=== PATIENT | male | born 1945 | race Caucasian/White ===

== ENCOUNTER 2016-06-02 09:32 | Emergency (ER) | payer OTHER ==
[~2016-06-02] VITALS: Ht 167.6 cm; Wt 72.5 kg
[~2016-06-02 09:32] MED LIST: ASPI-535 PO; UNABLE TO RECALL; [UNRECOGNIZED DRUG - REMARK]; [UNRECOGNIZED DRUG - REMARK] PO; [UNRECOGNIZED DRUG - REMARK] PO
[2016-06-02 09:37] VITALS: Ht 167.6 cm; Wt 72.5 kg
[2016-06-02] MEDS ORDERED: ONDANSETRON 4 MG INJ IV STA (09:54)
[2016-06-02] MEDS ORDERED: SOD CHLORIDE 0.9% 1,000 ML IV STA (09:54)
[2016-06-02] MEDS ORDERED: morphine 4 MG/ML VIAL IV STA (09:54)
[2016-06-02] MEDS ORDERED: FAMOTIDINE 20 MG INJ IV STA (09:54)
[2016-06-02] MEDS ORDERED: ASPI-664 PO (10:40)
[2016-06-02] MEDS ORDERED: LISI1TAB8 PO (10:41)
[2016-06-02] MEDS ORDERED: ATOR20TA38 PO (10:42)
[2016-06-02] MEDS ORDERED: AMOX1TAB10 PO (10:43)
[2016-06-02] MEDS ORDERED: IBUP800T25 PO (10:44)
[2016-06-02] MEDS ORDERED: CELE200C PO (10:44)
[2016-06-02] MEDS ORDERED: HYDROmorphONE 1 MG/ML SYG IV STA (10:47)
[2016-06-02 10:49] LABS: ADD SCAN DIFF NO
[2016-06-02 10:51] LABS: BASOPHILS % 0.3 % (0.0-2.0); EOSINOPHILS # 0.1 10^3/ul (0.0-0.5); EOSINOPHILS % 1.4 % (0.0-7.0); HEMOGLOBIN 14.2 g/dl (14.0-18.0); LYMPHOCYTES # 2.1 10^3/ul (0.8-2.9); LYMPHOCYTES % 33.2 % (15.0-51.0); MEAN CORPUSCULAR HEMOGLOBIN 31.1 pg (29.0-33.0); MEAN CORPUSCULAR VOLUME 94.1 fl (82.0-101.0); MEAN PLATELET VOLUME 11.6 fl (7.4-10.4); MONOCYTE # 0.6 10^3/ul (0.3-0.9); MONOCYTES % 9.2 % (0.0-11.0); NEUTROPHIL # 3.6 10^3/ul (1.6-7.5); NEUTROPHILS % 55.7 % (39.0-77.0); PLATELET COUNT 310 10^3/UL (140-415); RED BLOOD COUNT 4.57 10^6/ul (4.70-6.10); RED CELL DISTRIBUTION WIDTH 12.4 % (11.5-14.5); WHITE BLOOD COUNT 6.4 10^3/ul (4.8-10.8)
[2016-06-02 10:53] LABS: ADD UMIC NO; URINE BILIRUBIN (Dip) NEGATIVE (NEGATIVE); URINE BLOOD (Dip) NEGATIVE (NEGATIVE); URINE COLOR LT. YELLOW (YELLOW); URINE GLUCOSE (Dip) NEGATIVE (NEGATIVE); URINE KETONES (Dip) NEGATIVE (NEGATIVE); URINE LEUKOCYTE ESTERASE (Dip) NEGATIVE (NEGATIVE); URINE NITRITE (Dip) NEGATIVE (NEGATIVE); URINE TOTAL PROTEIN (Dip) NEGATIVE (NEGATIVE); URINE UROBILINOGEN (Dip) 0.2 E.U./dL (0.1-1.0)
[2016-06-02 11:11] LABS: ALBUMIN 4.1 g/dl (3.3-4.9); ALBUMIN/GLOBULIN RATIO 1.36; BILIRUBIN,INDIRECT 0.6 mg/dl (0-1.1); BILIRUBIN,TOTAL 0.6 mg/dl (0.2-1.3); CALCIUM 8.8 mg/dl (8.4-10.2); CREATININE 0.83 mg/dl (0.61-1.24); POTASSIUM 3.5 mmol/L (3.5-5.1); TOTAL PROTEIN 7.1 g/dl (6.1-8.1)
[2016-06-02 11:28] VITALS: BP 136/83; PULSE 48; RESP 20; TEMP 97.7
--- NOTE | 2016-06-02 12:12 | RADRPT ---
PROCEDURE: CT Abdomen and Pelvis without contrast. CLINICAL INDICATION: Abdominal and pelvic pain. TECHNIQUE: CT scan of the abdomen and pelvis without contrast was performed. Coronal and sagittal reformatted images were obtained from the axial source images. Images were reviewed on a high-resolu tion PACS workstation. Total exam DLP is 741.74 mGy-cm. CTDIvol is 11.88 mGy. One or more of the f ollowing dose reduction techniques were used: Automated exposure control, adjustment of the mA and/o r kV according to patient size, use of iterative reconstruction technique. COMPARISON: CT scan of the abdomen and pelvis dated 09/04/2012 which demonstrated a left inguinal hernia with colon extending into the left side of the scrotum, distended urinary bladder, and severe degenerative changes of the spine. FINDINGS: There is mild atelectasis at the left lung base posteriorly. The lung bases are otherwise normal. There is no pleural effusion. There is a small hiatus hernia containing upper stomach. There is a left sided posterior diaphragmatic hernia containing only abdominal fat. The liver is normal in size and attenuation. There is no focal hepatic lesion. The gallbladder and bile ducts are normal. The spleen is normal in size. There is no focal splenic lesion. Both adrenals are normal with no enlargement or mass. The pancreas is unremarkable with no mass or evidence of pancreatitis. There is no renal mass or hydronephrosis. There is no renal calculus or ureteral calculus. The abdominal aorta is not dilated. There is calcification in the aorta consistent with atheroscler osis. There is no retroperitoneal lymphadenopathy or mass. There is no pelvic lymphadenopathy or mass. The bladder and distal ureters are normal. The periappendiceal region is unremarkable with no evidence of appendicitis. As seen previously, there is a left inguinal hernia with sigmoid colon extending into the left side of the scrotum without incarceration or obstruction. There is no free fluid or free gas. There are severe degenerative changes throughout the visualized lumbar spine. There is no fracture or lytic lesion. There is lumbar scoliosis convex left. IMPRESSION: 1. Mild atelectasis at the left lung base posteriorly. 2. Left-sided diaphragmatic hernia containing only omental fat. 3. Hiatus hernia containing a portion of the upper stomach. 4. Atherosclerosis. 5. Left inguinal hernia with sigmoid colon extending into the left side of the scrotum. No evidenc e of obstruction. 6. Severe degenerative changes of the spine and lumbar scoliosis convex left. 7. Otherwise unremarkable study. RPTAT: QQ .Glynn Powell MD, Date Time Electronically viewed and signed by .Glynn Powell MD, on 06/02/2016 12:11 .R/
--- NOTE | 2016-06-02 13:13 | ERD ---
ER Documentation Chief Complaint Date/Time DATE: 06/02/16 TIME: 13:10 Chief Complaint Pt BIB son with c/o RUQ AP and nausea X 1 hour. HPI This is a 70-year-old male who presents to the emergency room for evaluation of abdominal pain. The patient states his abdominal pain started approximately 2 hours prior to his arrival. He states is achy pain which is localized to the left portion of his abdomen. He denies any radiation the pain, denies any fevers or vomiting associated with this pain but did say he has mild nausea. The patient states he is passing gas, has been going to the bathroom normally. He denies any aggravating or relieving factors for his pain. ROS All systems reviewed and are negative except as per history of present illness. Medications Home Meds Reported Medications Ibuprofen* (Ibuprofen*) 800 Mg Tab, 800 MG PO TID, TAB 06/02/16 Celecoxib* (Celebrex*) 200 Mg Capsule, 400 MG PO DAILY, CAP 06/02/16 Amoxicillin/Potassium Clav (Amox-Clav 875-125 mg Tablet) 875-125 mg Tab, 1 TAB PO BID for 10 Days, #20 TAB START DAY 05/29/16 06/02/16 Atorvastatin Calcium* (Atorvastatin Calcium*) 20 Mg Tablet, 20 MG PO QHS, #30 TAB 06/02/16 Lisinopril/Hydrochlorothiazide (Lisinopril-Hctz 20-25 mg Tab) 1 Each Tablet, 1 EACH PO DAILY, TAB 06/02/16 Aspirin* (Aspirin* EC) 81 Mg Tablet.dr, 81 MG PO DAILY, TAB 06/02/16 Discontinued Reported Medications [Antibx, Unk Name/Dose, Non Compliant W Freq] No Conflict Check 10/31/12 [Tramadol, Unk Dose] No Conflict Check, PO PRN 10/31/12 [Benazepril, Unk Dose] No Conflict Check, PO DAILY 10/31/12 Aspirin Ec (Aspir 81) 81 Mg Tablet.dr, PO DAILY, 0 Refills 05/17/10 [Unable To Recall] No Conflict Check 05/17/10 Allergies Allergies: Coded Allergies: No Known Allergy (Unverified , 06/02/16) PMhx/Soc History of Surgery: Yes (LEFT ARM SURGERY) Anesthesia Reaction: No Hx Neurological Disorder: No Hx Respiratory Disorders: No Hx Cardiac Disorders: Yes (HTN) Hx Psychiatric Problems: No Hx Miscellaneous Medical Probl: Yes (L knee pain) Hx Alcohol Use: No Hx Substance Use: No Hx Tobacco Use: No Smoking Status: Never smoker Physical Exam Vitals Vital Signs Date Time Temp Pulse Resp B/P Pulse Ox O2 Delivery O2 Flow Rate FiO2 06/02/16 11:28 97.7 48 20 136/83 98 Room Air 06/02/16 09:37 97.7 57 20 140/81 98 Physical Exam INITIAL VITAL SIGNS: Reviewed by me GENERAL: The patient is well developed and appropriate for usual state of health in no apparent distress HEENT: Pupils equal, round, and reactive to light. EOMI. There is no scleral icterus. NECK: C-spine is soft and supple, there is no meningismus. There is no cervical lymphadenopathy. LUNGS: Clear to auscultation bilaterally. There are no rales, wheezes or rhonchi. HEART: Regular rate and rhythm, no murmurs, clicks, rubs or gallops. ABDOMEN: Left upper quadrant tenderness to palpation, left lower quadrant tenderness to palpation, no CVAT. There are bowel sounds in all four quadrants. No rebound or guarding. EXTREMITIES: There is no peripheral cyanosis or edema. No focal swelling or erythema. NEUROLOGICAL: The patient moves all four extremities with 5/5 strength. Cranial nerves II - XII are intact. Normal gait. Alert and oriented SKIN: There is no apparent rash or petechiae. HEME/LYMPHATIC: There is no evidence of excessive bruising or lymphedema. PSYCHIATRIC: The patient does not appear anxious or depressed. Result Diagram: 06/02/16 1030 06/02/16 1030 Results 24 hrs Laboratory Tests Test 06/02/16 10:30 White Blood Count 6.410^3/ul Red Blood Count 4.5710^6/ul Hemoglobin 14.2g/dl Hematocrit 43.0% Mean Corpuscular Volume 94.1fl Mean Corpuscular Hemoglobin 31.1pg Mean Corpuscular Hemoglobin Concent 33.0g/dl Red Cell Distribution Width 12.4% Platelet Count 74813^3/UL Mean Platelet Volume 11.6fl Neutrophils % 55.7% Lymphocytes % 33.2% Monocytes % 9.2% Eosinophils % 1.4% Basophils % 0.3% Nucleated Red Blood Cells % 0.0/100WBC Neutrophils # 3.610^3/ul Lymphocytes # 2.110^3/ul Monocytes # 0.610^3/ul Eosinophils # 0.110^3/ul Basophils # 0.010^3/ul Nucleated Red Blood Cells # 0.010^3/ul Urine Color LT. YELLOW Urine Clarity CLEAR Urine pH 6.0 Urine Specific [place] 1.010 Urine Ketones NEGATIVE Urine Nitrite NEGATIVE Urine Bilirubin NEGATIVE Urine Urobilinogen 0.2 E.U./dL Urine Leukocyte Esterase NEGATIVE Urine Hemoglobin NEGATIVE Urine Glucose NEGATIVE% Urine Total Protein NEGATIVE Sodium Level 137mmol/L Potassium Level 3.5mmol/L Chloride Level 102mmol/L Carbon Dioxide Level 28mmol/L Anion Gap 11 Blood Urea Nitrogen 9mg/dl Creatinine 0.83mg/dl Glucose Level 130mg/dl Calcium Level 8.8mg/dl Total Bilirubin 0.6mg/dl Direct Bilirubin 0.00mg/dl Indirect Bilirubin 0.6mg/dl Aspartate Amino Transf (AST/SGOT) 31IU/L Alanine Aminotransferase (ALT/SGPT) 27IU/L Alkaline Phosphatase 100IU/L Troponin I < 0.010ng/ml Total Protein 7.1g/dl Albumin 4.1g/dl Globulin 3.00g/dl Albumin/Globulin Ratio 1.36 Lipase 91U/L Current Medications Medications (Trade) Dose Ordered Sig/Brayan Route PRN Reason Start Time Stop Time Status Last Admin Dose Admin Sodium Chloride (NS) 1,000 ml @ 1,000 mls/hr Q1H STAT IV 06/02/16 09:54 06/02/16 11:38 DC 06/02/16 10:24 Morphine Sulfate (morphine) 4 mg ONCE STAT IV 06/02/16 09:54 06/02/16 09:55 DC 06/02/16 10:24 Ondansetron HCl (Zofran Inj) 4 mg ONCE STAT IV 06/02/16 09:54 06/02/16 09:55 DC 06/02/16 10:23 Famotidine (Pepcid Iv) 20 mg ONCE STAT IV 06/02/16 09:54 06/02/16 09:55 DC 06/02/16 10:24 Hydromorphone HCl (Dilaudid) 1 mg ONCE STAT IV 06/02/16 10:47 06/02/16 11:38 DC 06/02/16 11:25 Procedures/MDM EKG: Rate/Rhythm: Sinus bradycardia QRS, ST, T-waves: [No changes consistent w/ acute ischemia] Impression: [No evidence of ischemia or arrhythmia] CT abdomen pelvis without: 1. Mild atelectasis at the left lung base posteriorly. 2. Left-sided diaphragmatic hernia containing only omental fat. 3. Hiatus hernia containing a portion of the upper stomach. 4. Atherosclerosis. 5. Left inguinal hernia with sigmoid colon extending into the left side of the scrotum. No evidence of obstruction. 6. Severe degenerative changes of the spine and lumbar scoliosis convex left. 7. Otherwise unremarkable study. This 70-year-old male presents to the emergency room for evaluation of abdominal pain. When I evaluated him he did have tenderness to palpation on my examination in the left upper quadrant and left lower quadrant. The patient was originally given morphine and Zofran. He does continue to have pain and was given [address] of the abdomen and pelvis does reveal left inguinal hernia with sigmoid colon extending into the left side of the scrotum but no evidence of obstruction. He also has a hiatal hernia containing a portion of the upper stomach. This patient is passing gas, his pain is controlled at this time. I advised him he needs to follow-up with the general surgeon for outpatient elective hernia repair. The patient verbalized understanding. He will be discharged home with a prescription for [place], Zofran for breakthrough pain at this time. Differential diagnoses entertained was broad with potential high acuity. Patient has been evaluated for appendicitis, cholecystitis, and other high risk medical and surgical causes of abdominal pain. Ultimately the patient's evaluation is nondiagnostic. Based on the patient's lack of risk factors, as well as the patient's clinical, laboratory, and imaging data, the patient appears to be low risk for these high risk causes of abdominal pain. Departure Diagnosis: Primary Impression: Left inguinal hernia Additional Impression: Abdominal pain Condition: Stable CORKY PACE DO Jun 02, 2016 13:13
[2016-06-02] MEDS ORDERED: ONDA4TAB8 PO (13:14)
[2016-06-02] MEDS ORDERED: HYDR-906 PO (13:14)
[2016-06-03] MEDS ORDERED: ONDANSETRON 4 MG INJ IV PRN (11:30)
[2016-06-03] MEDS ORDERED: morphine 2 MG INJ IV PRN (11:30)
[2016-06-03] MEDS ORDERED: OXYCODONE/ACETAMINOPHEN (5/325) TAB PO PRN ×2 (11:30)
== END 2016-06-02 13:36 | disposition home or self-care (01) ==
LOC: E/R 09:32
DX: K40.91 Unilateral inguinal hernia, without obstruction or gangrene, recurrent (principal); I10 Essential (primary) hypertension; Z79.82 Long term (current) use of aspirin
CPT/HCPCS: 36415; 74176; 80053; 81003; 83690; 84484; 85025; 93005; 96374; 96375; 99285; J1170; J2270; J2405; J7030

== ENCOUNTER 2016-06-02 16:11 | Inpatient (IN) | payer OTHER ==
[~2016-06-02] VITALS: Ht 167.6 cm; Wt 79.9 kg
[~2016-06-02 16:11] MED LIST changes: +AMOX1TAB10 PO; +ASPI-664 PO; +ATOR20TA38 PO; +CELE200C PO; +HYDR-906 PO; +IBUP800T25 PO; +LISI1TAB8 PO; +ONDA4TAB8 PO
[2016-06-02] MEDS ORDERED: SOD CHLORIDE 0.9% 1,000 ML IV STA (17:25)
[2016-06-02] MEDS ORDERED: ONDANSETRON 4 MG INJ IV STA (17:25)
[2016-06-02] MEDS ORDERED: HYDROmorphONE 1 MG/ML SYG IV STA (17:25)
--- NOTE | 2016-06-02 17:28 | ERA ---
ER Documentation Chief Complaint Date/Time DATE: 06/02/16 TIME: 17:27 Chief Complaint Pt with AP, recently DC in ED for same reason. HPI 70-year-old male hypertensive, hyperlipidemic with history of arthritis and left a little hernia for over 20 years since the ED complaining of severe, sharp and crampy left-sided abdominal and scrotal pain with nausea and vomiting. He was seen earlier today in the emergency department had extensive workup including CT scan revealed left internal hernia with bowel contents in the scrotum but no evidence of obstruction. Pain was relieved with the law did and he was discharged home with prescriptions for [place] and Zofran. He has ongoing nonbloody, nonbilious emesis is unable to tolerate his medications. Denies dysuria, polyuria, hematuria or flank pain. No chest pain or palpitations. No shortness of breath or cough. But has been unable to tolerate these meds. Denies diarrhea or constipation. No hematochezia or melanotic stools. No relieving or exacerbating factors. No fevers or chills. ROS All systems reviewed and are negative except as per history of present illness. Medications Home Meds Active Scripts Ondansetron Hcl* (Zofran*) 4 Mg Tablet, 4 MG PO Q8H Y for NAUSEA AND/OR VOMITING , #12 TAB Prov:CORKY PACE DO 06/02/16 Hydrocodone/Acetaminophen ([place] 5-325 Tablet) 1 Each Tablet, 1 TAB PO Q6H Y for PAIN, #10 TAB Prov:CORKY PACE DO 06/02/16 Reported Medications Ibuprofen* (Ibuprofen*) 800 Mg Tab, 800 MG PO TID, TAB 06/02/16 Celecoxib* (Celebrex*) 200 Mg Capsule, 400 MG PO DAILY, CAP 06/02/16 Amoxicillin/Potassium Clav (Amox-Clav 875-125 mg Tablet) 875-125 mg Tab, 1 TAB PO BID for 10 Days, #20 TAB START DAY 05/29/16 06/02/16 Atorvastatin Calcium* (Atorvastatin Calcium*) 20 Mg Tablet, 20 MG PO QHS, #30 TAB 06/02/16 Lisinopril/Hydrochlorothiazide (Lisinopril-Hctz 20-25 mg Tab) 1 Each Tablet, 1 EACH PO DAILY, TAB 06/02/16 Aspirin* (Aspirin* EC) 81 Mg Tablet.dr, 81 MG PO DAILY, TAB 06/02/16 Discontinued Reported Medications [Antibx, Unk Name/Dose, Non Compliant W Freq] No Conflict Check 10/31/12 [Tramadol, Unk Dose] No Conflict Check, PO PRN 10/31/12 [Benazepril, Unk Dose] No Conflict Check, PO DAILY 10/31/12 Aspirin Ec (Aspir 81) 81 Mg Tablet.dr, PO DAILY, 0 Refills 05/17/10 [Unable To Recall] No Conflict Check 05/17/10 Allergies Allergies: Coded Allergies: No Known Allergy (Unverified , 06/02/16) PMhx/Soc Reviewed in chart. As per HPI. History of Surgery: Yes (LEFT ARM SURGERY) Anesthesia Reaction: No Hx Neurological Disorder: No Hx Respiratory Disorders: No Hx Cardiac Disorders: Yes (HTN) Hx Psychiatric Problems: No Hx Miscellaneous Medical Probl: Yes (L knee pain) Hx Alcohol Use: No Hx Substance Use: No Hx Tobacco Use: No FmHx No stroke or cancer. Physical Exam Vitals Vital Signs Date Time Temp Pulse Resp B/P Pulse Ox O2 Delivery O2 Flow Rate FiO2 06/02/16 18:30 97.4 54 20 152/82 99 Room Air 06/02/16 16:13 97.4 62 20 194/90 95 Physical Exam Const: Alert, monitor status due to pain. Head: Atraumatic Eyes: Normal Conjunctiva. Sclerae anicteric. ENT: Normal External Ears, Nose and Mouth. Neck: Full range of motion nontender. No JVD. Resp: Breath sounds are equal and Clear to auscultation bilaterally Cardio: Regular rate and rhythm, no murmurs Abd: Soft, mild diffuse tenderness and distention. No rebound or guarding. Left inguinal hernia extending into the scrotum. Skin: No petechiae or rashes Back: No midline or flank tenderness Ext: No cyanosis, or edema Neur: Awake and alert. No focal deficit observed. Psych: Normal Mood and Affect Results 24 hrs Current Medications Medications (Trade) Dose Ordered Sig/Brayan Route PRN Reason Start Time Stop Time Status Last Admin Dose Admin Sodium Chloride (NS) 1,000 ml @ 1,000 mls/hr Q1H STAT IV 06/02/16 17:25 06/02/16 18:24 DC 06/02/16 17:33 Hydromorphone HCl (Dilaudid) 1 mg ONCE STAT IV 06/02/16 17:25 06/02/16 17:27 DC 06/02/16 17:34 Ondansetron HCl (Zofran Inj) 4 mg ONCE STAT IV 06/02/16 17:25 06/02/16 17:27 DC 06/02/16 17:33 Ondansetron HCl (Zofran Inj) 4 mg BRIDGE ORDER PRN IV NAUSEA AND/OR VOMITING 06/02/16 19:00 06/03/16 18:59 Acetaminophen (Tylenol Tab) 650 mg ER BRIDGE PRN PO MILD PAIN/FEVER 06/02/16 19:00 06/03/16 18:59 PROCEDURE: CT Abdomen and Pelvis without contrast. CLINICAL INDICATION: Abdominal and pelvic pain. TECHNIQUE: CT scan of the abdomen and pelvis without contrast was performed. Coronal and sagittal reformatted images were obtained from the axial source images. Images were reviewed on a high-resolution PACS workstation. Total exam DLP is 741.74 mGy-cm. CTDIvol is 11.88 mGy. One or more of the following dose reduction techniques were used: Automated exposure control, adjustment of the mA and/or kV according to patient size, use of iterative reconstruction technique. COMPARISON: CT scan of the abdomen and pelvis dated 09/04/2012 which demonstrated a left inguinal hernia with colon extending into the left side of the scrotum, distended urinary bladder, and severe degenerative changes of the spine. FINDINGS: There is mild atelectasis at the left lung base posteriorly. The lung bases are otherwise normal. There is no pleural effusion. There is a small hiatus hernia containing upper stomach. There is a left sided posterior diaphragmatic hernia containing only abdominal fat. The liver is normal in size and attenuation. There is no focal hepatic lesion. The gallbladder and bile ducts are normal. The spleen is normal in size. There is no focal splenic lesion. Both adrenals are normal with no enlargement or mass. The pancreas is unremarkable with no mass or evidence of pancreatitis. There is no renal mass or hydronephrosis. There is no renal calculus or ureteral calculus. The abdominal aorta is not dilated. There is calcification in the aorta consistent with atherosclerosis. There is no retroperitoneal lymphadenopathy or mass. There is no pelvic lymphadenopathy or mass. The bladder and distal ureters are normal. The periappendiceal region is unremarkable with no evidence of appendicitis. As seen previously, there is a left inguinal hernia with sigmoid colon extending into the left side of the scrotum without incarceration or obstruction. There is no free fluid or free gas. There are severe degenerative changes throughout the visualized lumbar spine. There is no fracture or lytic lesion. There is lumbar scoliosis convex left. IMPRESSION: 1. Mild atelectasis at the left lung base posteriorly. 2. Left-sided diaphragmatic hernia containing only omental fat. 3. Hiatus hernia containing a portion of the upper stomach. 4. Atherosclerosis. 5. Left inguinal hernia with sigmoid colon extending into the left side of the scrotum. No evidence of obstruction. 6. Severe degenerative changes of the spine and lumbar scoliosis convex left. 7. Otherwise unremarkable study. RPTAT: QQ .Glynn Powell MD, MD Date Time Electronically viewed and signed by .Glynn Powell MD, on 06/02/2016 12:11 .R/ Procedures/MDM DOCUMENTS REVIEWED: ED nurse, prior ED visit from today ED COURSE: Normal saline 1 L. Dilaudid 1 mg/Zofran 1 mg IV REEXAMINATION/REEVALUATION: Time: 18:00. Doing well. Abdomen soft nontender. No nausea or vomiting. MEDICAL DECISION MAKIN-year-old male hypertensive, hyperlipidemic with history of arthritis and left a little hernia for over 20 years since the ED complaining of severe, sharp and crampy left-sided abdominal and scrotal pain with nausea and vomiting. Patient presents with a long-standing left inguinal hernia which is not reducible. Presentation consistent with incarcerated left internal hernia. CT scan done several hours ago Saturday unremarkable however strangulation is still considered. No evidence of ischemic bowel. Pain resolved with intravenous hydration, analgesics and antiemetics. Counseled patient and family regarding diagnosis, diagnostic results and plan for admission. CALLS/CONSULTS: Time 18:00, Dr. Colmenares, Recommends admission to [facility]. He will contact surgery Dr. Smiley.. PATIENT CARE TRANSITIONED: Time: 18:40, Dr. Colmenares Departure Diagnosis: Primary Impression: Incarcerated left inguinal hernia Additional Impressions: Intractable abdominal pain Nausea and vomiting Qualified Code: R11.2 - Intractable vomiting with nausea, unspecified vomiting type Essential hypertension Condition: Serious CHAPITO CARVER MD Jun 02, 2016 17:28
[2016-06-02] MEDS ORDERED: ACETAMINOPHEN 325 MG TAB PO PRN (19:00)
[2016-06-02] MEDS ORDERED: ONDANSETRON 4 MG INJ IV PRN (19:00)
--- NOTE | 2016-06-02 19:38 | HP ---
Date/Time of Note Date/Time of Note DATE: 06/02/16 TIME: 19:37 Assessment/Plan VTE Prophylaxis VTE Prophylaxis Intervention: SCD's Assessment/Plan Assessment/Plan [facility] 1. 70yo man with known left inguinal hernia, now with intractable nausea and emesis all day secondary to entrapped colon in the left scrotum. Case discussed with Dr. Enzo Smiley by phone. * Anticipate surgery tomorrow morning * NPO after midnight * Pain management per Dr. Smiley * IV fluid support in the meantime, with recheck on electrolytes and CBC tomorrow morning. 2. ACL and PCL tears in the left knee. * Wrote to the medical accounting clerk regarding accelerated approval for needed surgery 3. Hypertension, with elevated SBP tonight in the 180s * Hydralazine PRN for SBP > 150 4. Hyperlipidemia 5. Prophylaxis * SCDs and famotidine IV 6. Disposition home after surgery. Sana Colmenares MD PhD [phone] HPI/ROS Admit Date/Time Admit Date/Time 02 June 2016 Hx of Present Illness 70[address] of Dr[address] Cameron Degroot with a history of asymptomatic left inguinal hernia for some years. He woke this morning with severe pain in the left pelvic area. He presented to the [facility] ER, where CT scan showed colonic contents in the left scrotum, but no obstruction. He was discharged home on pain medicine, with follow-up Saturday to Dr. Enzo Smiley. But his son said the pain worsened through the day, with intractable nausea and emesis. So he returned tonight to the ER for further evaluation and relief of his symptoms. ROS No loose stooling or constipation. No dyspnea or chest pain. PMH/Family/Social Past Medical History Medical History: high cholesterol, hypertension, other (Ligamentous tear ) Social History Smoking Status: Never smoker Exam/Review of Systems Vital Signs Vitals Vital Signs Date Time Temp Pulse Resp B/P Pulse Ox O2 Delivery O2 Flow Rate FiO2 06/02/16 18:30 97.4 54 20 152/82 99 Room Air Exam Constitutional: alert, oriented, well developed Psych: nl mood/affect, no complaints Head: atraumatic, normocephalic Eyes: EOMI, PERRL, nl conjunctiva ENMT: mucosa pink and moist Neck: non-tender, supple, No jvd, No masses, No nuchal rigidity, No thyromegaly Respiratory: clear to auscultation, normal air movement, No congested cough, No crackles/rales, No diminished breath sounds, No intercostal retraction, No labored breathing, No wheezing Cardiovascular: nl pulses, regular rate and rhythm, No bruits, No diastolic murmur, No edema, No gallop, No irregular rhythm, No jugular venous distention (JVD), No murmurs/extra sounds, No rub, No systolic murmur Gastrointestinal: bowel sounds, nl liver, spleen, non-tender, soft, tender ( Apprehensive with palpation of the left lower quadrant), No ascites, No distended, No firm, No hepatomegaly, No rebound or guarding, No splenomegaly, No surgical scars Genitourinary - Male: other (Moderately enlarged, firm, tender left scrotum with bowel contents non-reduceable there) Musculoskeletal: muscle tone, other (Left knee brace in place; h/o positive anterior and posterior drawer tests) Extremities: normal pulses, other, No calf tenderness, No clubbing, No cyanosis, No edema, No palpable cord, No pitting pedal edema, No tenderness Neurological: IT RISK ADVISOR II-XII intact, nl mental status, nl speech, nl strength, No DTR's symmetric, No confused, No focal weakness, No lethargic, No numbness , No reflexes, No unresponsive Skin: nl turgor, No diaphoresis, No ecchymosis, No laceration, No puncture, No rash or lesions Lymph: nl lymph nodes YURI COLMENARES M.D. Jun 02, 2016 19:38
[2016-06-02 22:02] VITALS: TEMP 97.4
[2016-06-02 22:20] VITALS: BP 185/86; PULSE 86; RESP 18
[2016-06-02 22:25] VITALS: BP 185/86; RESP 18
[2016-06-02 22:58] VITALS: Ht 167.6 cm; Wt 79.9 kg
[2016-06-02 23:20] VITALS: BP 181/80
[2016-06-03] VITALS (16 sets, daily range): BP systolic 133–157; BP diastolic 58–76; PULSE 50–69; RESP 14–19
[2016-06-03] MEDS ORDERED: ONDANSETRON 4 MG INJ IV PRN
[2016-06-03] MEDS ORDERED: NACL 0.9% 3 ML SYG IV SCH
[2016-06-03] MEDS ORDERED: DEXTROSE 5%-0.9% NACL 1,000 ML IV SCH
[2016-06-03] MEDS ORDERED: hydrALAzine 20 MG INJ IV PRN ×2 (00:30→11:00)
[2016-06-03] MEDS: FAMOTIDINE 20 MG INJ IV SCH ×3 (00:30→20:59)
[2016-06-03] MEDS: D5-NS + KCL 20 MEQ 1,000 ML IV SCH ×3 (01:05→20:00)
[2016-06-03] MEDS: HYDROmorphONE 1 MG/ML SYG IV PRN ×3 (01:05→17:16)
[2016-06-03 06:13] LABS: ADD SCAN DIFF NO
[2016-06-03 06:27] LABS: BASOPHILS % 0.1 % (0.0-2.0); EOSINOPHILS % 0.1 % (0.0-7.0); HEMATOCRIT 40.3 % (42.0-52.0); HEMOGLOBIN 13.4 g/dl (14.0-18.0); LYMPHOCYTES # 1.5 10^3/ul (0.8-2.9); LYMPHOCYTES % 16.9 % (15.0-51.0); MEAN CORPUSCULAR HEMOGLOBIN 31.8 pg (29.0-33.0); MEAN CORPUSCULAR HGB CONC 33.3 g/dl (32.0-37.0); MEAN CORPUSCULAR VOLUME 95.7 fl (82.0-101.0); MEAN PLATELET VOLUME 11.2 fl (7.4-10.4); MONOCYTE # 0.8 10^3/ul (0.3-0.9); MONOCYTES % 9.8 % (0.0-11.0); NEUTROPHIL # 6.2 10^3/ul (1.6-7.5); NEUTROPHILS % 72.7 % (39.0-77.0); PLATELET COUNT 277 10^3/UL (140-415); RED BLOOD COUNT 4.21 10^6/ul (4.70-6.10); RED CELL DISTRIBUTION WIDTH 12.4 % (11.5-14.5); WHITE BLOOD COUNT 8.6 10^3/ul (4.8-10.8)
[2016-06-03 06:43] LABS: INR 1.09; PROTIME 14.1 Sec (12.2-14.2); PT RATIO 1.1
[2016-06-03 06:57] LABS: CREATININE 0.62 mg/dl (0.61-1.24); POTASSIUM 4.6 mmol/L (3.5-5.1)
[2016-06-03 07:22] LABS: CALCIUM 8.5 mg/dl (8.4-10.2)
[2016-06-03] MEDS ORDERED: BUPIVACAINE 0.25% (MPF) 30 ML INJ ONE (10:01)
[2016-06-03] MEDS ORDERED: SUCCINYLCHOLINE CHLORIDE 100 MG/5 ML SYG IV ONE (10:11)
[2016-06-03] MEDS ORDERED: ROCURONIUM 50 MG INJ ONE (10:11)
[2016-06-03] MEDS ORDERED: PROPOFOL 20 ML ONE (10:12)
[2016-06-03] MEDS ORDERED: CEFAZOLIN 1 GM INJ ONE (10:23)
[2016-06-03] MEDS ORDERED: ONDANSETRON 4 MG INJ ONE (10:25)
[2016-06-03] MEDS ORDERED: DEXAMETHASONE 4 MG/ML 1 ML INJ ONE (10:26)
--- NOTE | 2016-06-03 10:27 | CONS ---
DATE OF ADMISSION: 06/02/2016 DATE OF CONSULTATION: 06/03/2016 TYPE OF CONSULTATION: Surgical. REASON FOR CONSULTATION: Incarcerated left inguinal hernia. HISTORY OF PRESENT ILLNESS: The patient is a 70-year-old gentleman who has had a left inguinal silvestre ia for quite some time. Yesterday, he presented to the emergency room with an incarcerated left ing uinal hernia associated with nausea and vomiting. CT showed colon incarcerated in the hernia. He h as had no fevers or chills. REVIEW OF SYSTEMS: HEAD, EARS, EYES, NOSE, AND THROAT: Unremarkable. PULMONARY: No history of pneumonia or shortness of breath. CARDIAC: History of hypertension and hyperlipidemia, but no chest pain, RI, or arrhythmia. ABDOMEN: As in the HPI. EXTREMITIES: Unremarkable. OUTPATIENT MEDICATIONS: Outlined in the chart. ALLERGIES: NONE. PHYSICAL EXAMINATION: GENERAL: The patient is an alert, oriented, 70-year-old male in no acute distress. HEAD, EARS, EYES, NOSE, AND THROAT: Within normal limits. LUNGS: Clear. HEART: Regular rhythm. ABDOMEN: Soft and nontender. There is an incarcerated left inguinal hernia extending into the scro idalia. The right groin is normal. EXTREMITIES: Unremarkable. LABORATORY DATA: The patient's hematocrit is 40 with a white count of 8600 without left shift. BUN , glucose, electrolytes are unremarkable. INR is 1.11. CT shows left inguinal hernia with sigmoid colon extending into the left of the scrotum, otherwise unremarkable except for diaphragmatic and hi atus hernia. IMPRESSION: Incarcerated left inguinal hernia with obstruction. PLAN: The patient will undergo emergency repair with mesh. The procedure and risks have been outli jazmyn to the patient and who have an excellent understanding of the nature of his situation and a gree to the proposed plan of therapy as outlined. Dictated By: MIRNA CERVANTES/FARHAD Conf#: [id number] DID#: [id number] CC: MATEO BIRD MD;*EndCC*
[2016-06-03] MEDS ORDERED: ROPIVACAINE 0.2% 20 ML VIAL ONE (10:28)
[2016-06-03] MEDS ORDERED: NEOSTIGMINE 3 MG/3 ML SYRINGE ONE (10:31)
[2016-06-03] MEDS ORDERED: GLYCOPYRROLATE 0.4 MG INJ ONE (10:31)
[2016-06-03] MEDS ORDERED: MEPERIDINE 25 MG INJ IV PRN (11:00)
[2016-06-03] MEDS ORDERED: PROCHLORPERAZINE 10 MG INJ IV PRN (11:00)
[2016-06-03] MEDS ORDERED: LABETALOL HCL 20MG INJ IV PRN (11:00)
[2016-06-03] MEDS ORDERED: HYDROmorphONE (0.2 MG/ML) 10ML SYG IV PRN (11:00)
[2016-06-03] MEDS: HYDROmorphONE (0.2 MG/ML) 10ML SYG IV PRN ×2 (11:43→11:54)
--- NOTE | 2016-06-03 15:08 | OPR ---
DATE OF OPERATION: 06/03/2016 PREOPERATIVE DIAGNOSIS: Incarcerated left inguinal hernia with obstruction. POSTOPERATIVE DIAGNOSIS: Incarcerated left inguinal hernia with obstruction OPERATION PERFORMED: 1. Repair left inguinal hernia with extra-large plug. 2. Reduction and release of bowel resection. 3. Left inguinal nerve block. SURGEON: Mirna Smiley MD ANESTHESIA: General. ANESTHESIOLOGIST: Reddy Jones DO OPERATIVE REPORT: After satisfactory general anesthesia was achieved, the lower abdomen was prepped and draped in the usual fashion. With the patient in a relaxed state, the hernia was able to be reduced. A 4 cm transverse suprapubic left groin incision was made and carried down to the level of the external oblique aponeurosis, which was opened in the direction of its fibers. The cord and nerve were retracted and preserved. There was a large sac extending into the scrotum. The sac was dissected free from the cord structures and divided in its midline leaving the distal sac in situ. The proximal sac was clamped and transfixed. A suture of 2-0 Vicryl was placed at the base of the transfixation point and redundant sac was excised and submitted. The internal ring was occluded by placement of an extra-large plug secured circumferentially to healthy fascia with interrupted 3-0 Vicryl suture. Next, the flat portion of the mesh was cut and fashioned to fit in the floor of the canal as an overlay. It was anchored at the pubic tubercle with 2-0 Novafil, laterally to inguinal ligament with interrupted 2-0 Novafil, and medially to conjoined tendon with interrupted 2-0 Novafil. The mesh distal to the cord was reconstituted with a single suture of 2-0 Novafil creating a new internal ring of appropriate size. The cord and nerve were placed beneath the external oblique, which was closed with a running 3-0 Vicryl suture. Next, a left inguinal nerve block was performed. Ten mL of 0.25% plain Marcaine were injected into the fascia 1 cm medial and inferior to the left anterior iliac spine. Ten more mL of local anesthetic were injected directly into the wound. Bunny fascia was closed with interrupted 3-0 Vicryl suture and skin closed with running 4-0 subcuticular Vicryl. Operative blood loss less than 10 mL. Sponge and needle counts reported as correct x2. The patient tolerated the procedure well and without incident or complication. Dictated By: MIRNA CERVANTES/FARHAD Conf#: [id number] DID#: [id number] CC: MATEO BIRD MD;*EndCC* MTDD
--- NOTE | 2016-06-03 15:44 | PN ---
Date/Time of Note Date/Time of Note DATE: 06/03/16 TIME: 15:40 Assessment/Plan VTE Prophylaxis VTE Prophylaxis Intervention: SCD's Lines/Catheters IV Catheter Type (from [facility]): Peripheral IV Assessment/Plan Assessment/Plan [facility] 1. 70yo man with known left inguinal hernia who presented yesterday with intractable nausea and emesis. CT showed entrapped colon in the left scrotum. Now s/p hernia repair by Dr. Enzo Smiley, with preservation of viable bowel. * Changed admission to "inpatient" med/surg status. * Post-operative pain management * Advance diet per Dr. Smiley * IV fluid support in the meantime, with recheck on electrolytes and CBC tomorrow morning. 2. ACL and PCL tears in the left knee. * Wrote to the medical billing instructor regarding accelerated approval for needed surgery 3. Hypertension, with elevated SBP last night in the 180s * Hydralazine PRN for SBP > 150 4. Hyperlipidemia 5. Prophylaxis * SCDs and famotidine IV 6. Disposition home after surgery. Sana Colmenares MD PhD [phone] Subjective 24 Hr Interval Summary Free Text/Dictation Doing very well, with little pain following surgery this morning. No nausea, headache, dyspnea or chest discomfort. Exam/Review of Systems Vital Signs Vitals Vital Signs Date Time Temp Pulse Resp B/P Pulse Ox O2 Delivery O2 Flow Rate FiO2 06/03/16 12:52 64 18 154/72 92 Room Air 06/03/16 11:15 98.4 Intake and Output 06/02/16 06/02/16 06/03/16 15:00 23:00 07:00 Intake Total 500 ml Output Total 600 ml Balance -100 ml Exam HEENT: Normal pupils, no jaundice, moist oral mucosa CVS: Regular rhythm, normal rate, no murmur. CHEST: Clear bilaterally ABD: benign, with bandaged LLQ incision EXT: Swollen left knee, without warmth or tenderness. No peripheral edema. NEURO: Intact SKIN: No rash. Results Result Diagram: 06/03/16 0525 06/03/16 0525 Results 24 hrs Laboratory Tests Test 06/03/16 05:25 06/03/16 05:40 White Blood Count 8.6 # Red Blood Count 4.21 L Hemoglobin 13.4 L Hematocrit 40.3 L Mean Corpuscular Volume 95.7 Mean Corpuscular Hemoglobin 31.8 Mean Corpuscular Hemoglobin Concent 33.3 Red Cell Distribution Width 12.4 Platelet Count 277 Mean Platelet Volume 11.2 H Neutrophils % 72.7 Lymphocytes % 16.9 Monocytes % 9.8 Eosinophils % 0.1 Basophils % 0.1 Nucleated Red Blood Cells % 0.0 Neutrophils # 6.2 Lymphocytes # 1.5 Monocytes # 0.8 Eosinophils # 0.0 Basophils # 0.0 Nucleated Red Blood Cells # 0.0 Sodium Level 135 Potassium Level 4.6 Chloride Level 105 Carbon Dioxide Level 24 Anion Gap 11 Blood Urea Nitrogen 6 L Creatinine 0.62 Glucose Level 118 Calcium Level 8.5 Prothrombin Time 14.1 Prothrombin Time Ratio 1.1 INR International Normalized Ratio 1.09 Troponin I < 0.012 Medications Medications Current Medications Ondansetron HCl (Zofran Inj) 4 mg Q6H PRN IV NAUSEA AND/OR VOMITING Last administered on 06/03/16 12:44; Admin Dose 4 MG; Start 06/03/16 at 00:00 Hydromorphone HCl (Dilaudid) 1 mg Q3H PRN IV PAIN LEVEL 7-10 Last administered on 06/03/16 12:44; Admin Dose 1 MG; Start 06/03/16 at 00:00 Famotidine 20 mg 20 mg Q12 IV Last administered on 06/03/16 12:44; Admin Dose 20 MG; Start 06/03/16 at 00:00 Potassium Chloride/Dextrose/ Sod Cl (D5-NS + KCl 20 Meq) 1,000 ml @ 100 mls/hr Q10H IV Last administered on 06/03/16 01:05; Admin Dose 100 MLS/HR; Start at 00:00 Hydralazine HCl (Apresoline) 10 mg Q4H PRN IV SBP > 150 Last administered on 00:29; Admin Dose 10 MG; Start 06/03/16 at 00:30 YURI COLMENARES M.D. Jun 03, 2016 15:44
[2016-06-04] MEDS: HYDROmorphONE 1 MG/ML SYG IV PRN ×2 (00:28→04:29)
[2016-06-04] MEDS: D5-NS + KCL 20 MEQ 1,000 ML IV SCH (03:25)
[2016-06-04 07:20] VITALS: BP 160/74; RESP 16
[2016-06-04 08:58] VITALS: BP 141/68; PULSE 66
[2016-06-04] MEDS: FAMOTIDINE 20 MG INJ IV SCH (08:58)
[2016-06-04] MEDS ORDERED: LISINOPRIL 20 MG TAB PO SCH (11:00)
[2016-06-04] MEDS ORDERED: HYDROCODONE/APAP (5/325) TAB PO PRN (11:00)
--- NOTE | 2016-06-04 11:01 | PN ---
Date/Time of Note Date/Time of Note DATE: 06/04/16 TIME: 10:42 Assessment/Plan VTE Prophylaxis VTE Prophylaxis Intervention: SCD's Lines/Catheters IV Catheter Type (from Nrsg): Peripheral IV Assessment/Plan Assessment/Plan 70yo man with: 1. Left incarcerated inguinal hernia POD#1 s/p hernia repair by Dr. Enzo Smiley. Ding well and plan for SNF today Tolerating regular diet and needs pain control and PT for safe ambulation D/c IVF and f/u labs 2. ACL and PCL tears in left knee. SNF transfer today, outpatient referral for needed surgery 3. Hypertension, resume Lisinopril and continue Hydralazine PRN for SBP > 160 4. Hyperlipidemia: resume statins Prophylaxis: SCDs and famotidine IV Disposition: d/c to SNF today with outpatient referral to ortho and post op follow up with General surgery. Subjective 24 Hr Interval Summary Free Text/Dictation Patient with pain left inguinal and also chronic left knee pain due to ACL/PCL tear Tolerating po, labs pending and plan for transfer to SNF today Exam/Review of Systems Vital Signs Vitals Vital Signs Date Time Temp Pulse Resp B/P Pulse Ox O2 Delivery O2 Flow Rate FiO2 06/04/16 08:58 66 141/68 06/04/16 07:20 98.2 16 97 06/03/16 12:52 Room Air Intake and Output 06/03/16 06/03/16 06/04/16 15:00 23:00 07:00 Intake Total 1000 ml 470 ml 320 ml Output Total 555 ml 100 ml Balance 445 ml 370 ml 320 ml Exam Constitutional: alert, oriented, well developed Respiratory: clear to auscultation, normal air movement Cardiovascular: nl pulses, regular rate and rhythm Gastrointestinal: non-tender, soft Genitourinary - Male: other (s/p left inguinal hernia repair ) Musculoskeletal: nl extremities to inspection Extremities: normal pulses, other (left knee pain ) Neurological: ROTARY ENGRAVER II-XII intact, nl mental status, nl speech Results Result Diagram: 06/03/1625 06/03/1625 Medications Medications Current Medications Ondansetron HCl (Zofran Inj) 4 mg Q6H PRN IV NAUSEA AND/OR VOMITING Last administered on 06/03/16t 12:44; Admin Dose 4 MG; Start 06/03/16 at 00:00 Hydromorphone HCl (Dilaudid) 1 mg Q3H PRN IV PAIN LEVEL 7-10 Last administered on 06/04/16 04:29; Admin Dose 1 MG; Start 06/03/16 at 00:00 Famotidine 20 mg 20 mg Q12 IV Last administered on 06/04/16 08:58; Admin Dose 20 MG; Start 06/03/16 at 00:00 Potassium Chloride/Dextrose/ Sod Cl (D5-NS + KCl 20 Meq) 1,000 ml @ 100 mls/hr Q10H IV Last administered on 06/04/16 03:25; Admin Dose 100 MLS/HR; Start 06/03 at 00:00 Hydralazine HCl (Apresoline) 10 mg Q4H PRN IV SBP > 150 Last administered on 00:29; Admin Dose 10 MG; Start 06/03/16 at 00:30 JOSEFINA ALVARENGA Jun 04, 2016 10:52
--- NOTE | 2016-06-04 11:02 | PDOCDIS ---
Discharge Instructions CONDITION Patient Condition: Stable HOME CARE INSTRUCTIONS: Diet Instructions: RegularSpecial Diet: Regular ACTIVITY: Activity Restrictions: Slowly Increase Activity FOLLOW UP/APPOINTMENTS Appointments Follow up with Dr Smiley in 1 week Referral to ortho outpatient for left knee ACL and PCL tear JOSEFINA ALVARENGA Jun 04, 2016 11:02
[2016-06-04] MEDS ORDERED: MAGNESIUM HYDROXIDE 30ML CUP PO PRN (11:30)
[2016-06-04] MEDS ORDERED: DOCUSATE SODIUM 100 MG CAP PO SCH (11:30)
[2016-06-04] MEDS ORDERED: BISACODYL 10 MG SUPP PR PRN (11:30)
[2016-06-04 11:55] LABS: ADD SCAN DIFF NO
[2016-06-04] MEDS ORDERED: FAMOTIDINE 20 MG TAB PO SCH (12:00)
[2016-06-04 12:10] LABS: BASOPHILS % 0.1 % (0.0-2.0); EOSINOPHILS % 0.1 % (0.0-7.0); HEMATOCRIT 38.8 % (42.0-52.0); HEMOGLOBIN 13.2 g/dl (14.0-18.0); LYMPHOCYTES # 1.6 10^3/ul (0.8-2.9); LYMPHOCYTES % 15.8 % (15.0-51.0); MEAN CORPUSCULAR HEMOGLOBIN 32.4 pg (29.0-33.0); MEAN CORPUSCULAR VOLUME 95.3 fl (82.0-101.0); MEAN PLATELET VOLUME 11.1 fl (7.4-10.4); MONOCYTE # 1.2 10^3/ul (0.3-0.9); MONOCYTES % 11.8 % (0.0-11.0); NEUTROPHIL # 7.2 10^3/ul (1.6-7.5); PLATELET COUNT 270 10^3/UL (140-415); RED BLOOD COUNT 4.07 10^6/ul (4.70-6.10); RED CELL DISTRIBUTION WIDTH 12.6 % (11.5-14.5); WHITE BLOOD COUNT 10.1 10^3/ul (4.8-10.8)
[2016-06-04 12:12] LABS: CREATININE 0.77 mg/dl (0.61-1.24)
[2016-06-04 12:13] LABS: CALCIUM 8.9 mg/dl (8.4-10.2)
[2016-06-04] MEDS ORDERED: ATOR20TA38 PO (13:34)
[2016-06-04] MEDS ORDERED: ATORVASTATIN 20 MG TAB PO SCH (21:00)
== END 2016-06-04 15:58 | DRG 352 ==
LOC: E/R 16:11 → MS4 18:44 → INTOOBSV 18:44 → PP2 22:39 → OBSVTOIN 06-03 15:40
PROVIDERS: ADMIT Internal Medicine; ATTEND Internal Medicine
PROC: 0YU60JZ Supplement Left Inguinal Region with Synthetic Substitute, Open Approach (ICD-10-PCS; principal; 2016-06-03 09:46)
DX: K40.30 Unilateral inguinal hernia, with obstruction, without gangrene, not specified as recurrent (principal); I10 Essential (primary) hypertension; E78.5 Hyperlipidemia, unspecified; S83.512A Sprain of anterior cruciate ligament of left knee, initial encounter; X58.XXXA Exposure to other specified factors, initial encounter; S83.522A Sprain of posterior cruciate ligament of left knee, initial encounter
CPT/HCPCS: 80048; 83735; 84484; 85025; 85610; 88302; 96374; 96375; 99217; C1781; G0378; J0330; J0360; J0690; J1100; J1170; J2175; J2405; J2710; J2795; J3010; J3480; J7030; J7042

== ENCOUNTER 2016-12-28 17:45 | Emergency (ER) | payer OTHER ==
[~2016-12-28] VITALS: Wt 69.2 kg
[~2016-12-28 17:45] MED LIST changes: -AMOX1TAB10 PO; -ASPI-535 PO; -ASPI-664 PO; -CELE200C PO; -ONDA4TAB8 PO; -UNABLE TO RECALL; -[UNRECOGNIZED DRUG - REMARK]; -[UNRECOGNIZED DRUG - REMARK] PO; -[UNRECOGNIZED DRUG - REMARK] PO
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
[2016-12-28] MEDS ORDERED: OXYCODONE/ACETAMINOPHEN (5/325) TAB PO ONE (20:30)
[2016-12-28] MEDS ORDERED: OXYC-279 PO (21:48)
[2016-12-28] MEDS ORDERED: NAPR-260 PO (21:49)
[2016-12-28] MEDS ORDERED: FAMO-96 PO (21:49)
== END 2016-12-28 22:08 | disposition home or self-care (01) ==
LOC: FTE 17:45
DX: M25.562 Pain in left knee (principal)
CPT/HCPCS: 99283